=== PATIENT | female | born 1980 | race Asian ===

== ENCOUNTER 2020-10-05 14:27 | Emergency (ER) | payer BC ==
--- NOTE | 2020-10-05 14:37 | Event Note ---
ED Screening Note Date of service: 10/05/20 Time: 14:37 ED Screening Note: Pleasant 39-year-old female presents the emergency department the anterior chest pain that radiates into the anterior neck while at work today. This initial assessment/diagnostic orders/clinical plan/treatment(s) is/are subject to change based on patients health status, clinical progression and re- assessment by fellow clinical providers in the ED. Further treatment and workup at subsequent clinical providers discretion. Patient/guardian urged not to elope from the ED as their condition may be serious if not clinically assessed and managed. Initial orders include: Cardiac protocol
--- NOTE | 2020-10-05 15:28 | XRay Report ---
XR chest routine 2V INDICATION / CLINICAL INFORMATION: cp. COMPARISON: None available. FINDINGS: SUPPORT DEVICES: None. HEART /PULMONARY VASCULATURE: No significant abnormality. LUNGS / PLEURA: No significant pulmonary or pleural abnormality. No pneumothorax. ADDITIONAL FINDINGS: No significant additional findings. IMPRESSION: 1. No acute findings. Signer Name: Chuck Traore MD Signed: 10/05/2020 3:24 PM Workstation Name: [id number]
[2020-10-05 15:29] LABS: Basophils # (Auto) 0.1 K/mm3 (0.0-0.1); Basophils % (Auto) 0.9 % (0.0-1.8); Eosinophils # (Auto) 0.2 K/mm3 (0.0-0.4); Hematocrit 39.9 % (30.3-42.9); Hemoglobin 13.2 gm/dl (10.1-14.3); Lymphocytes # (Auto) 2.4 K/mm3 (1.2-5.4); Lymphocytes % (Auto) 38.3 % (13.4-35.0); Mean Corpuscular HGB Conc 33 % (30-34); Mean Corpuscular Volume 81 fl (79-97); Monocytes # (Auto) 0.4 K/mm3 (0.0-0.8); Platelet Count 241 K/mm3 (140-440); Red Blood Count 4.95 M/mm3 (3.65-5.03); Red Cell Distribution Width 14.6 % (13.2-15.2)
[2020-10-05 15:38] LABS: Partial Thromboplastin Time 32.2 Sec. (24.2-36.6)
[2020-10-05 15:46] LABS: Alanine Aminotransferase 7 units/L (7-56); Albumin 4.3 g/dL (3.9-5); BUN/Creatinine Ratio 16; Blood Urea Nitrogen 13 mg/dL (7-17); Calcium 9.4 mg/dL (8.4-10.2); Hemolysis Index 0
[2020-10-05] MEDS ORDERED: ASPIRIN 325 MG TAB PO ONE (17:10)
[2020-10-05 17:26] LABS: Chol/HDL Ratio 3.71 %
--- NOTE | 2020-10-05 17:43 | Emergency Department Report ---
ED Chest Pain HPI - General Chief Complaint: Chest Pain Stated Complaint: CHEST PAIN Time Seen by Provider: 10/05/20 17:00 Source: patient Mode of arrival: Ambulatory Limitations: No Limitations - History of Present Illness Initial Comments: 39-year-old female the past medical history of sickle cell trait and elevated cholesterol (diagnosed 16 years ago currently diet controlled) presents to the hospital with complaints of chest pain that happened around 11 AM. 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 She was standing and seein g patient when she had mid upper chest pressure radiating to her neck and jaw. Patient reports shortness of breath and try to "breathe" her way through the discomfort. Symptoms resolved there then reoccurred when evaluating another patient. She denies exertional chest pain, nausea, vomiting, diaphoresis, calf tenderness, recent travel, history of PE/DVT. Patient is currently on Depo. Her father had cancer and of a heart attack after a 1 month hospital admission at age of 57. Paternal grandmother of an NE at age 46. Mom has a history of hypertension and her younger sister does not have any previous cardiac history. Patient states her typical BP is 120/70 she does not check t his on a regular basis. - Related Data Previous Rx's Medication Instructions Recorded Last Taken Type Aspirin 325 mg PO DAILY #30 tablet 10/05/20 Unknown Rx AtorvaSTATin [Lipitor] 40 mg PO QHS #30 tab 10/05/20 Unknown Rx Metoprolol Xl [Metoprolol 25 mg PO QDAY #30 tablet 10/05/20 Unknown Rx SUCCINATE ER TAB] Allergies Allergy/AdvReac Type Severity Reaction Status Date / Time No Known Allergies Allergy Unverified 10/05/20 14:43 Heart Score - HEART Score History: Moderately suspicious EKG: Normal Age: < 45 Risk factors: 1-2 risk factors Troponin: < normal limit HEART Score: 2 ED Review of Systems ROS: Stated complaint: CHEST PAIN Other details as noted in HPI Comment: All other systems reviewed and negative ED Past Medical Hx - Past Medical History Previous Medical History?: Yes Additional medical history: high cholestrol. sickle cell trait - Surgical History Past Surgical History?: Yes Hx Breast Surgery: Yes (left breast) Additional Surgical History: hernia repair - Family History Family history: CAD/NE, cancer, hypertension - Social History Smoking Status: Never Smoker Substance Use Type: None - Medications Home Medications: Home Medications Medication Instructions Recorded Confirmed Last Taken Type Aspirin 325 mg PO DAILY #30 tablet 10/05/20 Unknown Rx AtorvaSTATin [Lipitor] 40 mg PO QHS #30 tab 10/05/20 Unknown Rx Metoprolol Xl [Metoprolol 25 mg PO QDAY #30 tablet 10/05/20 Unknown Rx SUCCINATE ER TAB] ED Physical Exam - General Limitations: No Limitations - Other Other exam information: General: No acute distress Head: Atraumatic Eyes: normal appearance ENT: Moist mucous membranes Neck: Normal appearance, no midline tenderness Chest: Clear to auscultation bilaterally CV: Regular rate and rhythm Abdomen: Soft, normal bowel sounds, nontender, nondistended, no rebound or guarding Back: Normal inspection Extremity: Normal inspection, full range of motion, no calf tenderness or leg edema Neuro: Alert O x 3, no facial asymmetry, speech clear, no gross motor sensory deficit Psych: Appropriate behavior Skin: No rash ED Course Vital Signs 10/05/20 10/05/20 14:43 18:21 Temperature 99.6 F Pulse Rate 90 81 Respiratory 18 16 Rate Blood Pressure 145/84 Blood Pressure 146/74 [Right] O2 Sat by Pulse 99 100 Oximetry - Consultations Consultation #1: 10/05/20 18:54 Case d/w Dr Yanes who rec to offer admission for stress in the am. IF pt desires to leave he recommends Metoprol XL 25mg daily, Liptor 40mg Daily and f/u in office with Dr Allison in am and if not the am she can follow up with him the [facility] office after 1:30p SERENITY score - Serenity Score Age > 65: (0) No Aspirin use within the Past 7 Days: (0) No 3 or more CAD Risk Factors: (0) No 2 or more Angina events in past 24 hrs: (1) Yes Known CAD with more than 50% Stenosis: (0) No Elevated Cardiac Markers: (0) No ST Deviation Greater than 0.5mm: (0) No SERENITY Score: 1 ED Medical Decision Making - Lab Data Result diagrams: 10/05/20 15:08 10/05/20 15:08 Lab Results 10/05/20 10/05/20 10/05/20 Range/Units 15:08 15:08 15:08 WBC 6.3 (4.5-11.0) K/mm3 RBC 4.95 (3.65-5.03) M/mm3 Hgb 13.2 (10.1-14.3) gm/dl Hct 39.9 (30.3-42.9) % MCV 81 (79-97) fl MCH 27 L (28-32) pg MCHC 33 (30-34) % RDW 14.6 (13.2-15.2) % Plt Count 241 (140-440) K/mm3 Lymph % (Auto) 38.3 H (13.4-35.0) % [place] % (Auto) 7.0 (0.0-7.3) % Eos % (Auto) 3.0 (0.0-4.3) % Baso % (Auto) 0.9 (0.0-1.8) % Lymph # (Auto) 2.4 (1.2-5.4) K/mm3 [place] # (Auto) 0.4 (0.0-0.8) K/mm3 Eos # (Auto) 0.2 (0.0-0.4) K/mm3 Baso # (Auto) 0.1 (0.0-0.1) K/mm3 Seg Neutrophils % 50.8 (40.0-70.0) % Seg Neutrophils # 3.2 (1.8-7.7) K/mm3 PT 13.1 (12.2-14.9) Sec. INR 1.00 (0.87-1.13) APTT 32.2 (24.2-36.6) Sec. D-Dimer (0-234) ng/mlDDU Sodium 140 (137-145) mmol/L Potassium 4.3 (3.6-5.0) mmol/L Chloride 104.4 (98-107) mmol/L Carbon Dioxide 25 (22-30) mmol/L Anion Gap 15 mmol/L BUN 13 (7-17) mg/dL Creatinine 0.8 (0.6-1.2) mg/dL Estimated GFR > 60 ml/min BUN/Creatinine Ratio 16 % Glucose 98 (65-100) mg/dL Calcium 9.4 (8.4-10.2) mg/dL Total Bilirubin 0.30 (0.1-1.2) mg/dL AST 13 (5-40) units/L ALT 7 (7-56) units/L Alkaline Phosphatase 67 (35-129) units/L Troponin T < 0.010 (0.00-0.029) ng/mL Total Protein 6.8 (6.3-8.2) g/dL Albumin 4.3 (3.9-5) g/dL Albumin/Globulin Ratio 1.7 % Triglycerides (2-149) mg/dL Cholesterol (50-199) mg/dL LDL Cholesterol Direct (50-130) mg/dL HDL Cholesterol (40-59) mg/dL Cholesterol/HDL Ratio % 10/05/20 10/05/20 10/05/20 Range/Units 15:08 15:08 17:57 WBC (4.5-11.0) K/mm3 RBC (3.65-5.03) M/mm3 Hgb (10.1-14.3) gm/dl Hct (30.3-42.9) % MCV (79-97) fl MCH (28-32) pg MCHC (30-34) % RDW (13.2-15.2) % Plt Count (140-440) K/mm3 Lymph % (Auto) (13.4-35.0) % [place] % (Auto) (0.0-7.3) % Eos % (Auto) (0.0-4.3) % Baso % (Auto) (0.0-1.8) % Lymph # (Auto) (1.2-5.4) K/mm3 [place] # (Auto) (0.0-0.8) K/mm3 Eos # (Auto) (0.0-0.4) K/mm3 Baso # (Auto) (0.0-0.1) K/mm3 Seg Neutrophils % (40.0-70.0) % Seg Neutrophils # (1.8-7.7) K/mm3 PT (12.2-14.9) Sec. INR (0.87-1.13) APTT (24.2-36.6) Sec. D-Dimer < 135 (0-234) ng/mlDDU Sodium (137-145) mmol/L Potassium (3.6-5.0) mmol/L Chloride (98-107) mmol/L Carbon Dioxide (22-30) mmol/L Anion Gap mmol/L BUN (7-17) mg/dL Creatinine (0.6-1.2) mg/dL Estimated GFR ml/min BUN/Creatinine Ratio % Glucose (65-100) mg/dL Calcium (8.4-10.2) mg/dL Total Bilirubin (0.1-1.2) mg/dL AST (5-40) units/L ALT (7-56) units/L Alkaline Phosphatase (35-129) units/L Troponin T < 0.010 (0.00-0.029) ng/mL Total Protein (6.3-8.2) g/dL Albumin (3.9-5) g/dL Albumin/Globulin Ratio % Triglycerides 70 (2-149) mg/dL Cholesterol 197 (50-199) mg/dL LDL Cholesterol Direct 151 H (50-130) mg/dL HDL Cholesterol 53 (40-59) mg/dL Cholesterol/HDL Ratio 3.71 % - EKG Data -: EKG Interpreted by Me EKG shows normal: sinus rhythm, ST-T waves (no stemi) Rate: normal - Radiology Data Radiology results: report reviewed (cxr: naf) - Medical Decision Making Patient pain free for the the >4 hours that she was in the ED. patient's heart score is 2. Troponin negative x2. An EKG unchanged x2. She also has a low pretest probability for PE/DVT and a negative D-dimer. Patient was provided an aspirin 325 mg in the ED. She was also offered admission to the hospital for a.m. stress test. I spent time explaining that our ED evaluation today rules out acute NE but cannot diagnose unstable angina without a stress test. I explained that unstable angina can lead to an acute heart attack which can lead to /disability. Patient states that she exercises daily and does not have exercise-induced chest pain. Patient declined admission at this time refers to follow-up as an outpatient tomorrow afternoon with Dr. Ornelas. Critical Care Time: No Critical care attestation.: If time is entered above; I have spent that time in minutes in the direct care of this critically ill patient, excluding procedure time. ED Disposition Clinical Impression: Chest pain, Elevated LDH, Family history of coronary artery disease Disposition: TO HOME OR SELFCARE Is pt being admited?: No Does the pt Need Aspirin: No Condition: Stable Instructions: Chest Pain (ED), Nonspecific Chest Pain, Adult, Dyslipidemia Additional Instructions: Take the medication as prescribed. You have declined admission for a.m. stress testing at this time. Please follow-up with the industrial eng tomorrow afternoon as discussed. Please return if symptoms worsen as indicated by your discharge instructions You have been provided a copy of your labs for follow up. Prescriptions: Aspirin 325 mg PO DAILY #30 tablet AtorvaSTATin [Lipitor] 40 mg PO QHS #30 tab Metoprolol Xl [Metoprolol SUCCINATE ER TAB] 25 mg PO QDAY #30 tablet Referrals: MAGALI YANES MD [Staff Physician] - 10/06/20 1:30 pm (Call in the morning and inform the certified legal secretary specialist that you were told to follow-up around 1:[address] Yanes. Informed him that the ER doctor (Dr Sevilla) spoke to Dr. Yanes directly regarding your follow-up visit. The Office may given you a more specific time/appointment when you call tomorrow morning. ) Time of Disposition: 19:16
[2020-10-05 19:38] VITALS: BP 143/72
== END 2020-10-05 19:38 | disposition home or self-care (01) ==
LOC: ED 14:27
DX: R07.89 Other chest pain (principal); R74.02 Elevation of levels of lactic acid dehydrogenase [LDH]; Z98.890 Other specified postprocedural states; Z79.899 Other long term (current) drug therapy; Z79.82 Long term (current) use of aspirin
CPT/HCPCS: 36415; 71046; 80053; 80061; 84484; 85025; 85379; 85610; 85730; 93005; 99283